=== PATIENT | male | born 1970 | race Caucasian/White ===

== ENCOUNTER 2023-06-17 14:03 | Emergency (ER) | payer BC ==
--- NOTE | 2023-06-17 15:29 | XR ---
EXAMINATION TYPE: XR lumbosacral spine min 4V DATE OF EXAM: 06/17/2023 2:58 PM CLINICAL INDICATION:Male, 52 years old with history of pain; PHH COMPARISON: None TECHNIQUE: XR lumbosacral spine min 4V - Frontal, lateral and coned down L5-S1 lateral views of the l umbar spine. FINDINGS: Last rib-bearing vertebra assigned T12, there are 5 lumbar-type vertebral bodies. Mineralization appe ars within normal limits. Vertebral body heights appear maintained without evidence of acute compress ion fracture. There is mild/moderate multilevel degenerative disc disease with disc marginal osteophy betzy at multiple levels. Limbus vertebra versus intercalary bone at the L1-L2 level. Mild facet arthro sis in the mid to lower lumbar region. Disc interspacing appears relatively preserved. There is no si gnificant listhesis. No pars interarticularis defects are seen. There is mild levocurvature of the up per lumbar spine extending into the inferior thoracic spine. No acute soft tissue abnormality. Presumed extrinsic structures are partially seen over the pelvis. IMPRESSION: 1. No radiographic evidence of acute compression fracture. 2. Mild/moderate multilevel spondylosis.
[2023-06-17] MEDS: ORPHENADRINE 30 MG/ML 2 ML VIAL IVP STA (15:35)
[2023-06-17] MEDS: HYDROmorphone 0.5 MG/0.5 ML SYRINGE IVP STA (15:35)
--- NOTE | 2023-06-17 16:24 | ED ---
Back Pain HPI - General Chief Complaint: Back Pain/Injury Stated Complaint: Back pain Time Seen by Provider: 06/17/23 14:06 Source: patient, RN notes reviewed Limitations: no limitations - History of Present Illness Initial Comments: 52-year-old male presents emergency department complaint of low back pain. Patient states he got an argument and a wrestling dispute with his stepson. Patient states that family members tried to break it up states that they lay down on causing some back discomfort. He complains of low back pain denies bowel complaint and cons retention no saddle anesthesias. Denies any focal weakness states he just has pain with movement. Patient states he was upset earlier but denies being suicidal homicidal currently denies any self-harm. Does have abrasion from the wrestling injury on his face but denies any headache, neck pain - Related Data Previous Rx's Medication Instructions Recorded Cyclobenzaprine [Flexeril] 10 mg PO TID PRN #15 tab 06/17/23 Ketorolac [Toradol] 10 mg PO Q8HR #15 tab 06/17/23 Allergies Allergy/AdvReac Type Severity Reaction Status Date / Time No Known Allergies Allergy Verified 06/17/23 14:22 Review of Systems ROS Statement: Those systems with pertinent positive or pertinent negative responses have been documented in the HPI. ROS Other: All systems not noted in ROS Statement are negative. Past Medical History Past Medical History: Coronary Artery Disease (CAD), Hypertension History of Any Multi-Drug Resistant Organisms: None Reported Past Surgical History: Bariatric Surgery Additional Past Surgical History / Comment(s): heart cath this month-no stents Past Psychological History: No Psychological Hx Reported Smoking Status: Never smoker Past Alcohol Use History: Occasional Past Drug Use History: Marijuana General Exam Limitations: no limitations General appearance: alert, in no apparent distress Head exam: Present: atraumatic, normocephalic, normal inspection Eye exam: Present: normal appearance, PERRL, EOMI. Absent: scleral icterus, conjunctival injection, periorbital swelling ENT exam: Present: normal exam, normal oropharynx, mucous membranes moist Neck exam: Present: normal inspection, full ROM. Absent: tenderness, meningismus, lymphadenopathy Respiratory exam: Present: normal lung sounds bilaterally. Absent: respiratory distress, wheezes, rales, rhonchi, stridor Cardiovascular Exam: Present: regular rate, normal rhythm, normal heart sounds. Absent: systolic murmur, diastolic murmur, rubs, gallop, clicks GI/Abdominal exam: Present: soft, normal bowel sounds. Absent: distended, tenderness, guarding, rebound, rigid Extremities exam: Present: normal inspection, full ROM, normal capillary refill. Absent: tenderness, pedal edema, joint swelling, calf tenderness Back exam: Present: tenderness, muscle spasm, paraspinal tenderness. Absent: full ROM, vertebral tenderness Course Vital Signs 06/17/23 06/17/23 14:17 15:58 Temperature 98.0 F 98.0 F Pulse Rate 90 72 Respiratory 22 17 Rate Blood Pressure 203/116 158/101 O2 Sat by Pulse 98 96 Oximetry Medical Decision Making - Medical Decision Making Was pt. sent in by a medical professional or institution (, PA, CHILD PROTECTIVE INVESTIGATOR, urgent care, hospital, or care home...) When possible be specific @ -No Did you speak to anyone other than the patient for history (EMS, parent, family, police, friend...)? What history was obtained from this source @ -No Did you review nursing and triage notes (agree or disagree)? Why? @ -I reviewed and agree with nursing and triage notes Were old charts reviewed (outside hosp., previous admission, EMS record, old EKG, old radiological studies, urgent care reports/EKG's, care home records)? Report findings @ -No old charts were reviewed Differential Diagnosis (chest pain, altered mental status, abdominal pain women, abdominal pain men, vaginal bleeding, weakness, fever, dyspnea, syncope, headache, dizziness, GI bleed, back pain, seizure, CVA, palpatations, mental health, musculoskeletal)? @ -Differential Back Pain: Strain, zoster, cauda equina syndrome, epidural abscess, vertebral osteomyelitis, discitis, fracture, subluxation, disc herniation, DJD, spinal stenosis, dissection, AAA, pancreatitis, peptic ulcer disease, pyelonephritis, kidney stone, this is not meant to be an all-inclusive list. EKG interpreted by me (3pts min.). @ -None X-rays interpreted by me (1pt min.). @ -X-ray lumbar spine showing no acute changes, degenerative changes noted. CT interpreted by me (1pt min.). @ -None done U/S interpreted by me (1pt. min.). @ -None done What testing was considered but not performed or refused? (CT, X-rays, U/S, labs)? Why? @ -None What meds were considered but not given or refused? Why? @ -None Did you discuss the management of the patient with other professionals (professionals i.e. , PA, CHILD PROTECTIVE INVESTIGATOR, lab, RT, psych nurse, older adult social work specialist, cotton opener, teacher, community resource officer, wrapper caser)? Give summary @ -No Was smoking cessation discussed for >3mins.? @ -No Was critical care preformed (if so, how long)? @ -No Were there social determinants of health that impacted care today? How? (Homelessness, low income, unemployed, alcoholism, drug addiction, transportation, low edu. Level, literacy, decrease access to med. care, long-term, rehab)? @ -No Was there de-escalation of care discussed even if they declined (Discuss DNR or withdrawal of care, Hospice)? DNR status @ -No What co-morbidities impacted this encounter? (DM, HTN, Smoking, COPD, CAD, Cancer, CVA, ARF, Chemo, Hep., AIDS, mental health diagnosis, sleep apnea, morbid obesity)? @ -None Was patient admitted / discharged? Hospital course, mention meds given and route, prescriptions, significant lab abnormalities, going to OR and other pertinent info. @ -Charge patient is pain has improved, blood pressures improved. Patient be discharged with analgesics. Return plans discussed. Patient has no red flag symptoms. Undiagnosed new problem with uncertain prognosis? @ -No Drug Therapy requiring intensive monitoring for toxicity (Heparin, Nitro, Insulin, Cardizem)? @ -No Were any procedures done? @ -No Diagnosis/symptom? @ -Low back pain Acute, or Chronic, or Acute on Chronic? @ -Acute Uncomplicated (without systemic symptoms) or Complicated (systemic symptoms)? @ -Uncomplicated Side effects of treatment? @ -No Exacerbation, Progression, or Severe Exacerbation? @ -No Poses a threat to life or bodily function? How? (Chest pain, [place], [place], pneumonia, PE, COPD, DKA, ARF, appy, cholecystitis, CVA, Diverticulitis, Homicidal, Suicidal, threat to staff... and all critical care pts) @ -No Disposition Clinical Impression: Strain of lumbar region Disposition: HOME SELF-CARE Condition: Stable Instructions (If sedation given, give patient instructions): Acute Low Back Pain (ED) Additional Instructions: Please return to the Emergency Department if symptoms worsen or any other concerns. Prescriptions: Cyclobenzaprine [Flexeril] 10 mg PO TID PRN #15 tab PRN Reason: Muscle Spasm Ketorolac [Toradol] 10 mg PO Q8HR #15 tab Is patient prescribed a controlled substance at d/c from ED?: No Referrals: Nonstaff,Physician [REFERRING] - 1-2 days Time of Disposition: 16:00
[2023-06-17] MEDS: KETOROLAC 15 MG/ML 1 ML VIAL IVP STA (16:25)
[2023-06-17] MEDS: DEXAMETHASONE SOD PHOSPHATE 10 MG/ML 1 ML VIAL IVP STA (16:26)
[2023-06-17] MEDS: HYDROcodone/APAP 5-325MG 1 EACH TAB PO STA (16:27)
[2023-06-17] MEDS: ACET/COD 300 MG/30 MG STARTER PACK 6 TAB BTL PO STA (16:28)
[2023-06-17 16:46] VITALS: BP 168/98; PULSE 71; RESP 17; TEMP 97.8
== END 2023-06-17 16:33 | disposition home or self-care (01) ==
LOC: EC 14:03
DX: S39.012A Strain of muscle, fascia and tendon of lower back, initial encounter (principal); F12.90 Cannabis use, unspecified, uncomplicated; X58.XXXA Exposure to other specified factors, initial encounter; Y93.72 Activity, wrestling
CPT/HCPCS: 72110; 99284; 96374; 96375 ×3; J1100; J2360; J1885; J1170

== ENCOUNTER → 2024-08-20 | Outpatient (CLI) | payer BC ==
--- NOTE | 2024-08-20 15:27 | CT ---
EXAMINATION TYPE: CT abdomen pelvis w con DATE OF EXAM: 08/20/2024 COMPARISON: None CLINICAL INDICATION: Male, 54 years old with history of K63.89 OTHER SPECIFIED DISEASES OF INTESTINE; PHH, Abnormal colonoscopy TECHNIQUE: Performed with Oral Contrast and with IV Contrast, patient injected with 100 mL of Isovue 300. CT DLP: 1225.[address] CTDI: mGy Automated exposure control for dose reduction was used. FINDINGS: The lung bases are clear. There are postsurgical changes involving the stomach and GE junction. The gallbladder is normal without distention, wall thickening, pericholecystic fluid or gallstones. T here is no biliary ductal dilatation. There is no focal mass or organomegaly involving the liver, pancreas, spleen or adrenal glands. There is no solid renal mass or hydronephrosis and there is homogeneous contrast enhancement of the r enal parenchyma. The caliber the abdominal aorta is normal is no retroperitoneal adenopathy or hemorr melissa. The bowel loops are normal in caliber and there is no evidence of dilatation or obstruction. No infla mmatory changes are identified in the bowel wall or mesentery. There is no free intraperitoneal air or fluid. No pelvic mass, free fluid, abscess or adenopathy. The osseous structures and soft tissues are intact. IMPRESSION: Postsurgical changes involving the stomach and GE junction. No other significant abnormality seen. [facility], , 08/20/2024 3:24 PM
--- NOTE | 2024-08-20 17:22 | P.HPBAR ---
Bariatric H&P - History & Physicial H&P Date: 08/20/24 History & Physicial: Visit/CC: Patient initial contact: Initial weight: Initial weight in pounds: Height: Initial BMI: Last weight: Current weight: Current weight in pounds: Current BMI: [place] body weight (based on NIH guidelines): Excess body weight loss: The patient is a 54 year-old M who presents for Bariatric Assessment. Highest weight 320 lowest 190. Needs EGD for sleeve. Colon for colon polyp Past Medical History Past Medical History: Coronary Artery Disease (CAD), Hypertension History of Any Multi-Drug Resistant Organisms: None Reported Past Surgical History: Bariatric Surgery Additional Past Surgical History / Comment(s): heart cath this month-no stents Past Psychological History: No Psychological Hx Reported Smoking Status: Never smoker Past Alcohol Use History: Occasional Past Drug Use History: Marijuana Bariatric Checklist Checklist: Plan: Checklist: EGD: 1. Hiatal hernia: 2. H. Pylori: HgbA1c: Vitamin D: Smoking: Primary care physician referral: Psychiatry clearance: Cardiology clearance: Sleep study: Diet journal: VTE risk score: VTE risk level: Rehab needs at discharge:
== END | disposition home or self-care (01) ==
LOC: RADCTMAIN 12:29
PROVIDERS: ATTEND Surgery Plastic and Reconstructive Surgery
DX: K63.89 Other specified diseases of intestine (principal); Z98.890 Other specified postprocedural states
CPT/HCPCS: 74177; Q9967

== ENCOUNTER → 2024-08-20 | Outpatient (CLI) | payer BC ==
[2024-08-20 16:57] VITALS: BP 138/80; PULSE 67; RESP 16; TEMP 97.8; BMI 34.5
--- NOTE | 2024-10-28 15:37 | P.HPBAR ---
Bariatric H&P - History & Physicial H&P Date: 08/20/24 History & Physicial: Visit/CC: Patient initial contact: Initial weight: Initial weight in pounds: Height: Initial BMI: Last weight: Current weight: Current weight in pounds: Current BMI: [place] body weight (based on NIH guidelines): Excess body weight loss: The patient is a 54 year-old M who presents for Bariatric Assessment. Highest weight 320 lowest 190. Needs EGD for sleeve. Colon for colon polyp Past Medical History Past Medical History: Coronary Artery Disease (CAD), Hypertension History of Any Multi-Drug Resistant Organisms: None Reported Past Surgical History: Bariatric Surgery Additional Past Surgical History / Comment(s): heart cath this month-no stents Past Psychological History: No Psychological Hx Reported Smoking Status: Never smoker Past Alcohol Use History: Occasional Past Drug Use History: Marijuana Bariatric Checklist Checklist: Plan: Checklist: EGD: 1. Hiatal hernia: 2. H. Pylori: HgbA1c: Vitamin D: Smoking: Primary care physician referral: Psychiatry clearance: Cardiology clearance: Sleep study: Diet journal: VTE risk score: VTE risk level: Rehab needs at discharge:
== END ==
LOC: BARWHC3 15:52
PROVIDERS: ATTEND Surgery Plastic and Reconstructive Surgery
DX: E66.01 Morbid (severe) obesity due to excess calories (principal); Z53.9 Procedure and treatment not carried out, unspecified reason
CPT/HCPCS: 99202